=== PATIENT | female | born 1990 | race Caucasian/White ===

== ENCOUNTER 2020-04-17 20:37 | Emergency (ER) | payer SELFPAY ==
[~2020-04-17] VITALS: Ht 172.7 cm; Wt 72.0 kg
[2020-04-17 22:22] LABS: URINE BILIRUBIN - DIPSTICK NEGATIVE (NEGATIVE); URINE BLOOD DIPSTICK NEGATIVE (NEGATIVE); URINE COLOR YELLOW; URINE GLUCOSE - DIPSTICK NEGATIVE (NEGATIVE); URINE KETONE NEGATIVE (NEGATIVE); URINE LEUK ESTERASE NEGATIVE (NEGATIVE); URINE NITRITE - DIPSTICK NEGATIVE (Negative); URINE PH 6.5 (4.5-8.0); URINE PROTEIN - DIPSTICK NEGATIVE (NEG-TRACE); URINE SPECIFIC GRAVITY <=1.005; URINE UROBILINOGEN - DIPSTICK 0.2 E.U./dL (0.2)
[2020-04-17 23:31] LABS: HEMATOCRIT 42.3 % (37.0-47.0); HEMOGLOBIN 13.9 g/dl (12.0-16.0); IMMATURE GRANULOCYTES 0.2 % (0.0-5.0); MEAN CELL VOLUME 87.2 fL CALC (80.0-100.0); MEAN CORPUSCULAR HGB 28.7 pG CALC (26.0-32.0); MEAN CORPUSCULAR HGB CONC 32.9 g/dL CAL (32.0-36.0); NEUT# 3.15 thou/uL (2.00-7.15); RED BLOOD COUNT 4.85 mill/uL (4.20-5.60); RED CELL DISTRI WIDTH 12.9 % (11.5-15.5)
[2020-04-17 23:51] LABS: ALBUMIN 4.6 g/dL (3.2-5.0); ALKALINE PHOSPHATASE 63 u/l (38-126); AMYLASE 65 u/l (30-110); ANION GAP 13 (6-22 (CALC)); BILIRUBIN, TOTAL 0.6 mg/dL (0.0-1.4); BUN 12 mg/dL (7-17); BUN/CREATININE RATIO 19 (12-20 (CALC)); CARBON DIOXIDE 25 mmol/l (22-30); CHLORIDE 106 mmol/l (95-108); CREATININE 0.6 mg/dL (0.5-1.0); GFR > 60 ML/MIN (>=60 (CALC)); GFR FOR AFR.AMER. > 60 ML/MIN (>=60 (CALC)); LIPASE 97 u/l (23-300); POTASSIUM 4.2 mmol/l (3.5-5.1); SGOT/AST 36 u/l (14-36); SODIUM 140 mmol/l (137-146); TOTAL PROTEIN 7.7 g/dL (6.3-8.2)
[2020-04-18] MEDS ORDERED: ZOFRAN4 M1 PO (02:29)
[2020-04-18] MEDS ORDERED: PREVACID30 M3 PO (02:29)
[2020-04-18] MEDS ORDERED: NAPROXEN500 MG PO (02:29)
[2020-04-18 02:30] VITALS: BP 103/66
== END 2020-04-18 02:42 | disposition home or self-care (01) | DRG 866 ==
LOC: ED 20:37
PROVIDERS: Emergency Medicine
DX: B34.9 Viral infection, unspecified (principal)
CPT/HCPCS: Q9967

== ENCOUNTER 2020-05-08 18:11 | Emergency (ER) | payer SELFPAY ==
[~2020-05-08] VITALS: Ht 172.7 cm; Wt 75.0 kg
[~2020-05-08 18:11] MED LIST: NAPROXEN500 MG PO; PREVACID30 M3 PO; ZOFRAN4 M1 PO
[2020-05-08 18:50] VITALS: BP 134/76
== END 2020-05-08 19:39 | disposition home or self-care (01) | DRG 605 ==
LOC: ED 18:11
DX: S40.811A Abrasion of right upper arm, initial encounter (principal); X58.XXXA Exposure to other specified factors, initial encounter; Y92.73 Farm field as the place of occurrence of the external cause; Z97.5 Presence of (intrauterine) contraceptive device